=== PATIENT | female | born 1975 | race Caucasian/White ===

== ENCOUNTER 2023-06-25 23:34 | Emergency (ER) | payer SELFPAY ==
[~2023-06-25] VITALS: Ht 165.1 cm; Wt 81.0 kg
[2023-06-25 23:36] VITALS: O2SAT 100
[2023-06-25] MEDS ORDERED: LORAZEPAM 2MG/ML CPJ IV ONE (23:45)
[2023-06-25] MEDS ORDERED: ONDANSETRON HCL 4MG/2ML INJ IV ONE (23:45)
[2023-06-26 01:54] VITALS: BP 121/70; PULSE 90; RESP 20; TEMP 98.6
== END 2023-06-26 01:55 | disposition home or self-care (01) ==
LOC: ER 23:34
DX: T50.7X5A Adverse effect of analeptics and opioid receptor antagonists, initial encounter (principal); F11.90 Opioid use, unspecified, uncomplicated; Z88.8 Allergy status to other drugs, medicaments and biological substances; Z98.890 Other specified postprocedural states; Y92.89 Other specified places as the place of occurrence of the external cause
CPT/HCPCS: 96374; 96375; 99284; J2060; J2405

== ENCOUNTER 2024-10-16 17:55 | Emergency (ER) | payer MEDICAID, OTHER ==
[~2024-10-16] VITALS: Ht 165.1 cm; Wt 91.0 kg
[2024-10-16 18:04] VITALS: TEMP 37.1; O2SAT 100
[2024-10-16 18:11] VITALS: O2SAT 100
[2024-10-16] MEDS ORDERED: ACETAMINOPHEN 500MG TABLET PO ONE (20:00)
[2024-10-16] MEDS ORDERED: IBUPROFEN 600MG TABLET PO ONE (20:00)
[2024-10-16 20:14] LABS: CHLORIDE 113 mEq/L (98-107); POTASSIUM 3.6 mEq/L (3.5-5.1); SODIUM 144 mEq/L (136-145)
[2024-10-16 20:15] LABS: CARBON DIOXIDE 18 mEq/L (21-32)
[2024-10-16 20:16] LABS: CALCIUM 9.2 mg/dL (8.7-10.4)
[2024-10-16 20:20] LABS: GLUCOSE 94 mg/dL (70-105)
[2024-10-16 20:21] LABS: TROPONIN I HIGH SENSITIVITY 4 ng/L (3.0-34); UREA NITROGEN BLOOD 20 mg/dL (9-23)
[2024-10-16 20:41] LABS: BASOPHILS % 0.4 % (0.0-2.0); EOSINOPHILS % 0.7 % (0.0-5.0); HEMATOCRIT. 45.4 % (36.0-48.0); HEMOGLOBIN. 14.5 g/dL (12.0-16.0); LYMPHOCYTES % 37.7 % (20.0-50.0); MEAN CORPUSCULAR HEMOGLOBIN 29.8 pg (28.0-32.0); MEAN CORPUSCULAR VOLUME 93.1 fL (81.0-99.0); MEAN PLATELET VOLUME 9.8 fl (7.4-10.4); MONOCYTES % 7.7 % (2.0-8.0); NEUTROPHILS % 53.5 % (40.0-76.0); PLATELET 301 x1000/uL (130-400); RED BLOOD CELL COUNT 4.87 mill/uL (4.2-5.4); RED CELL DISTRIBUTION WIDTH 14.2 % (11.6-14.6); WHITE BLOOD COUNT 12.3 x1000/uL (4.5-11.0)
[2024-10-16 20:59] LABS: HCG SCREEN NEGATIVE
[2024-10-16 21:28] VITALS: BP 92/65; PULSE 94; RESP 18; TEMP 98.8
[2024-10-16] MEDS: ACETAMINOPHEN 500MG TABLET PO NR (21:28)
[2024-10-16] MEDS: IBUPROFEN 600MG TABLET PO NR (21:28)
== END 2024-10-16 22:13 | disposition home or self-care (01) ==
LOC: ER 17:55
DX: B34.9 Viral infection, unspecified (principal); F19.90 Other psychoactive substance use, unspecified, uncomplicated; K58.9 Irritable bowel syndrome, unspecified; Z98.890 Other specified postprocedural states; Z88.1 Allergy status to other antibiotic agents
CPT/HCPCS: 36415; 71045; 73562; 80048; 84484; 84703; 85025; 93005; 99285